=== PATIENT | female | born 1980 | race Caucasian/White ===

== ENCOUNTER 2018-06-29 22:00 | Inpatient (IN) | payer MEDICAID ==
[~2018-06-29] VITALS: Ht 165.1 cm; Wt 65.9 kg
--- NOTE | ~2018-06-29 | EC ---
PATIENT:SUZANNE CARVER DATE OF SERVICE: 06/29/18 SEX: F MEDICAL RECORD: [id number] DATE OF : [birth year] LOCATION:D.M3 D.120 AGE OF PATIENT: 37 ADMISSION DATE: 06/29/18 REFERRING PHYSICIAN: INTERPRETING PHYSICIAN: LARRY DUNNE MD ECHOCARDIOGRAM REPORT ECHO CHARGES 4 ECHO COMPLETE Date: 07/01/18 CLINICAL DIAGNOSIS: R/O VEGETATION ECHOCARDIOGRAPHIC MEASUREMENTS (adult normal given) AC root (d.<3.7cm) 2.9 cm LV Septum d (<1.2 cm> 0.7 cm Valve Excursion 2.0 cm LV Septum (systole) 1.2 cm Left Atria (s.<4.0cm> 2.0 cm LVPW d(<1.2cm) 1.0 cm RV (d.<2.3cm) 2.0 cm LVPW (sytole) 1.6 cm LV diastole(<5.6CM) 5.3 cm MV E-F(>70mm/sec) cm LV systole 3.4 cm LVOT Diameter 1.7 cm MV exc.(>10mm) cm Est.ejection fraction (50-75%) % DOPPLER: LVIT cm/sec A 140 cm/sec E 126 cm/sec LA cm/sec RVSP 29.0 mmHg LVOT 122 cm/sec AOP1/2T m/s Asc. Ao 128 cm/sec RVOT 86.0 cm/sec RA cm/sec PA 111 cm/sec AV Gradient Peak 6.6 mmHg AV Mean 3.3 mmHg AV Area 1.9 cm MV Gradient Peak 6.7 mmHg MV Mean 2.6 mmHg MV Area cm COMMENTS: Dye Colorist Formulator: [employer] [facility] Counseling Department Chair: 1 Dr. Dunne TAPE# PACS Pericardial Effusion N DATE OF SERVICE: 07/01/2018 FINDINGS: 1. Left ventricular chamber size is within normal limits. Left ventricular systolic function is normal. Overall ejection fraction estimated at 60%. 2. Left atrium, right atrium and right ventricular chamber sizes are within normal limits. 3. Valvular structures have normal structure and motion. 4. Doppler interrogation reveals trace mitral regurgitation, no other valvular insufficiency or stenosis. ECHOCARDIOGRAM REPORT [id number] SUZANNE CARVER 5. No evidence of vegetative endocarditis. 6. Pulmonary systolic pressure is normal, estimated at 29 mmHg. No evidence of pericardial effusion or left ventricular thrombus. TRANSINT:[id number] Voice Confirmation ID: [id number] DOCUMENT ID: [id number] LARRY DUNNE MD CC: [id number] DICTATION DATE: 07/02/18 1157 FINANCING ANALYST: 07/02/18 1216 ADM IN [facility] [address] [place] [address]
[2018-06-30] VITALS (7 sets, daily range): BP systolic 95–106; BP diastolic 32–60; Ht 165.1 cm; Wt 65.9 kg
[2018-06-30 06:58] LABS: HEMATOCRIT 32.8 % (36.0-48.0); HEMOGLOBIN 11.1 g/dL (12-16); MCH 29.8 pg (26.0-34.0); MCHC 33.8 g/dL (31.0-37.0); MCV 88.2 fL (80.0-100.0); MEAN PLATELET VOLUME 10.6 fL (7.4-10.4); PLATELET COUNT 224 10x3/uL (130-400); RBC 3.72 10x6/uL (4.00-5.40); RDW 13.6 % (11.5-14.5); WBC 7.7 10x3/uL (4.8-10.8)
[2018-06-30 07:09] LABS: CALCIUM 8.5 mg/dL (8.5-10.1); CARBON DIOXIDE 23.8 mmol/L (21.0-32.0); POTASSIUM - SERUM 3.8 mmol/L (3.5-5.1)
--- NOTE | 2018-06-30 07:38 | NUR ---
INITIAL ROUNDING ON THE PATIENT. SHE WAS ASSISTED UP TO THE BATHROOM, ASSESSMENT COMPLETED. DAUGHTER AT THE BED SIDE. IVF INFUSING TO THE RIGHT FA
[2018-06-30 08:40] LABS: EOSINOPHILS 3 % (0-7); LYMPHOCYTES 47 % (15-50); MONOCYTES 6 % (2-11); NEUTROPHILS 44 % (40-80); PLATELET ESTIMATE NORMAL
[2018-06-30 10:24] LABS: % SATURATION 19 % (15-55); IRON 51 ug/dl (35-150); TOTAL IRON BIND CAPACITY 264 ug/dl (260-445); UNSAT IRON BIND CAPACITY 213 ug/dl (150-375)
[2018-06-30 12:43] LABS: HCG URINE NEGATIVE (NEGATIVE)
[2018-06-30 13:18] LABS: APPEARANCE HAZY (CLEAR); BILIRUBIN NEGATIVE (NEGATIVE); COLOR YELLOW (YELLOW); GLUCOSE NEGATIVE (NEGATIVE); KETONE NEGATIVE (NEGATIVE); NITRITE NEGATIVE (NEGATIVE); PROTEIN NEGATIVE (NEGATIVE); SPECIFIC GRAVITY 1.015 (1.005-1.020); UROBILINOGEN NORMAL (NORMAL)
[2018-06-30 13:21] LABS: BACTERIA MODERATE /hpf (NONE SEEN); EPITHELIAL CELLS 0-5 /hpf (0-5); MUCUS <1+ /lpf (NONE SEEN); WHITE CELLS - URINE 0-5 /hpf (0-5)
[2018-06-30 13:28] LABS: UDS - AMPHET POSITIVE QUAL (NEGATIVE); UDS - BARB NEGATIVE QUAL (NEGATIVE); UDS - BENZO NEGATIVE QUAL (NEGATIVE); UDS - COCAINE NEGATIVE QUAL (NEGATIVE); UDS - OPIATE NEGATIVE QUAL (NEGATIVE); UDS - PCP NEGATIVE QUAL (NEGATIVE); UDS - THC NEGATIVE QUAL (NEGATIVE)
--- NOTE | 2018-06-30 17:58 | HP ---
PATIENT: SUZANNE CARVER MEDICAL RECORD: [id number] ACCOUNT: [id number] LOCATION:[address] : [birth year] ADMISSION DATE: 06/29/18 PCP: BACILIO COREY MD HISTORY AND PHYSICAL EXAMINATION HISTORY OF PRESENT ILLNESS: The patient is a 37-year-old white female with known MS previously followed by Dr. Loyd who presents with a flare times 2 days. She has been to the point where she is almost unable to walk. She is having some difficulties with swallowing and speech. She is very weak. She can identify no recent triggers. She does use methamphetamine on a regular basis. The last usage was yesterday. She inhales it, but no recent change in her recent abuse patterns. She denies any fever. She denies any weight loss, nausea, or vomiting. She has previously responded well to short courses of high-dose corticosteroids. She is going to be admitted for 48 hours of high dose Solu-Medrol. PAST MEDICAL HISTORY: Significant for known multiple sclerosis, depression, and chronic methamphetamine use. PAST SURGICAL HISTORY: None aware of. ALLERGIES OR INTOLERANCES: INCLUDE BENADRYL AND PENICILLIN. CURRENT HOME MEDICATIONS: Include butalbital p.r.n., methocarbamol p.r.n., Flonase, and vitamin D. FAMILY HISTORY: Noncontributory. SOCIAL HISTORY: Positive for methamphetamine use. REVIEW OF SYSTEMS: No fever, no chest pain, no shortness of breath, some nausea, vomiting, no abdominal pain. Periods have been regular, generalized weakness, decreased wellness manager, but everything seems symmetrical. No focal deficits. IMPRESSION: 1. MS with acute flare. 2. Chronic methamphetamine abuse. PLAN: Admit to check labs and test. If above okay, high-dose corticosteroids times 48 hours. See orders for rest of plan. TRANSINT:[id number] Voice Confirmation ID: [id number] DOCUMENT ID: [id number] MAKEDA ROMERO DO at 1758 CC: [id number] DICTATION DATE: 06/29/18 1619 SELF PROPELLED MINING MACHINE OPERATOR: 06/29/181944 ADM IN [place] [id number] [place] [address]
[2018-07-01] VITALS: BP 88/41
[2018-07-01 04:00] VITALS: BP 81/47
[2018-07-01 08:12] LABS: CALCIUM 7.8 mg/dL (8.5-10.1); CARBON DIOXIDE 22.1 mmol/L (21.0-32.0); CHLORIDE - SERUM 112 mmol/L (98-107); GLUCOSE 99 mg/dL (74-106); POTASSIUM - SERUM 3.4 mmol/L (3.5-5.1); SODIUM 143 mmol/L (136-145)
[2018-07-01 08:17] LABS: BASOPHILS 0.3 % (0-2); EOSINOPHILS 0.2 % (0-7); HEMATOCRIT 31.3 % (36.0-48.0); HEMOGLOBIN 10.4 g/dL (12-16); IMMATURE GRANULOCYTES 0.1 % (0-5); MCH 29.3 pg (26.0-34.0); MCHC 33.2 g/dL (31.0-37.0); MCV 88.2 fL (80.0-100.0); MEAN PLATELET VOLUME 10.7 fL (7.4-10.4); MONOCYTES 6.1 % (2-11); NEUTROPHILS 60.3 % (40-80); PLATELET COUNT 201 10x3/uL (130-400); RBC 3.55 10x6/uL (4.00-5.40); RDW 13.7 % (11.5-14.5)
[2018-07-01 08:22] LABS: CALC OSMOLALITY 284 mosm/kg (275-300); CREATININE - SERUM 0.5 mg/dL (0.6-1.3); UREA NITROGEN 12 mg/dL (7-18); eGFR NON AFRICAN AMERICAN > 90 mL/min (90-120)
[2018-07-01 08:24] LABS: WBC 10.5 10x3/uL (4.8-10.8)
--- NOTE | 2018-07-01 08:41 | NUR ---
PT RESTING IN BED, EYES CLOSED. RESPIRATIONS EVEN AND UNLABORED. AROUSES TO VOICE. NO C/O PAIN. NO S/S OF ACUTE DISTRESS NOTED. ALERT AND ORIENTED X3. UP WITH ASSIST. PT ACHS. IV TO RIGHT WRIST, NS INFUSING @ 100ML/HR. SITE PATENT WITHOUT REDNESS OR SWELLING. PT DENIES ANYTHING FURTHER AT THIS TIME. CALL LIGHT IN REACH. WILL CONTINUE TO MONITOR.
[2018-07-01 09:41] VITALS: BP 105/53
[2018-07-01 13:53] VITALS: BP 108/55
[2018-07-01 17:08] LABS: FOLATE (FOLIC ACID) - SERUM 5.1 ng/mL (>3.0)
--- NOTE | 2018-07-01 18:18 | NUR ---
PT RESTING IN BED, EYES OPEN. NO C/O PAIN. NO S/S OF ACUTE DISTRESS NOTED. FAMILY AT BEDSIDE. PT DENIES ANYTHING FURTHER. CALL LIGHT IN REACH. WILL CONTINUE TO MONITOR.
[2018-07-01 19:43] VITALS: BP 96/48
[2018-07-02 00:58] VITALS: BP 114/67
[2018-07-02 04:43] VITALS: BP 109/74
[2018-07-02 05:29] LABS: BASOPHILS 0 % (0-2); EOSINOPHILS 0 % (0-7); HEMATOCRIT 33.9 % (36.0-48.0); HEMOGLOBIN 11.4 g/dL (12-16); IMMATURE GRANULOCYTES 0.2 % (0-5); LYMPHOCYTES 8.3 % (15-50); MCH 29.5 pg (26.0-34.0); MCHC 33.6 g/dL (31.0-37.0); MCV 87.6 fL (80.0-100.0); MEAN PLATELET VOLUME 10.9 fL (7.4-10.4); MONOCYTES 3.7 % (2-11); NEUTROPHILS 87.8 % (40-80); PLATELET COUNT 195 10x3/uL (130-400); RBC 3.87 10x6/uL (4.00-5.40); RDW 13.7 % (11.5-14.5)
[2018-07-02 05:44] LABS: WBC 13.7 10x3/uL (4.8-10.8)
[2018-07-02 05:55] LABS: CALC OSMOLALITY 277 mosm/kg (275-300); CALCIUM 8.4 mg/dL (8.5-10.1); CARBON DIOXIDE 22.7 mmol/L (21.0-32.0); CHLORIDE - SERUM 108 mmol/L (98-107); CREATININE - SERUM 0.5 mg/dL (0.6-1.3); GLUCOSE 110 mg/dL (74-106); SODIUM 139 mmol/L (136-145); UREA NITROGEN 9 mg/dL (7-18); eGFR NON AFRICAN AMERICAN > 90 mL/min (90-120)
[2018-07-02 05:56] LABS: POTASSIUM - SERUM 4.2 mmol/L (3.5-5.1)
[2018-07-02 08:14] VITALS: BP 107/64
--- NOTE | 2018-07-02 09:11 | NUR ---
SOLU-MEDROL HUNG AT THIS TIME. PT A/O X4, RESP EVEN AND NONLABORD ON RA. P T REFUSED TO WEAR SCDS AT THIS TIME. PT DENIES ANY NEEDS, CALL LIGHT IN REACH, FAMILY AT BEDSIDE, NAD NOTED, WILL CONTINUE TO MONITOR.
--- NOTE | 2018-07-02 11:30 | NUR ---
BLOOD SUGAR OF 109, NO COVERAGE NEEDED PER S/S. PT DENIES ANY NEEDS AT THIS TIME. FAMILY AT BEDSIDE, CALL LIGHT IN REACH,NAD NOTED, WILL CONTINUE TO MONITOR.
[2018-07-02 13:17] VITALS: BP 115/70
--- NOTE | 2018-07-02 15:37 | NUR ---
PT RESTING COMFORTABLY IN BED, DENIES ANY NEEEDS AT THIS TIME. CALL LIGHT IN REACH, NAD NOTED, WILL CONTINUE TO MONITOR.
--- NOTE | 2018-07-02 15:55 | MORECARE ---
CASE MANAGEMENT DISCHARGE SUMMARY PATIENT: SUZANNE CARVER UNIT: [id number] ADM DATE: 06/29/18 AGE: 37 : [birth year] SEX: F ROOM/BED: D.1207 AUTHOR: COTY SULLIVAN PHYSICIAN: REFERRING PHYSICIAN: MAKEDA ROMERO DO DATE OF SERVICE: 07/02/18 Discharge Plan Patient Name: SUZANNE CARVER Facility: [facility]:[place] : 1980 Planned Disposition: Home Anticipated Discharge Date: Discharge Date: Expected LOS: Initial Reviewer: [email or web address] Initial Review Date: 07/02/2018 Generated: 07/02/18 4:55 pm Comments DCP- Discharge Planning Updated by [id number]: Keesha Barnard on 07/02/18 2:[address] Patient Name: SUZANNE CARVER Admission Status: Elective Accout number: [id number] Admission Date: 06-29-2018 : 1980 Admission Diagnosis: Attending: MAKEDA ROMERO Current LOS: 3 Anticipated DC Date: Planned Disposition: Home Primary Insurance: MEDICAID [place] Discharge Planning Comments: CM MET WITH PT AFTER VERBAL CONSENT TO DO INITIAL CM ASSESSMENT. CM EXPLAINED THE ROLE OF A CM AND SERVICES AVAILABLE LIKE HOME HEALTH, REHAB AND DME. PT STATED SHE WILL RETURN HOME WITH FAMILY. PT FEELS THIS IS A SAFE DC PLAN AND DENIES AND CM NEEDS AT THIS TIME. CM WILL CONTINUE TO FOLLOW. Suspender Maker: Keesha Barnard DCPIA - Discharge Planning Initial Assessment Updated by [id number]: Keesha Barnard on 07/02/18 3:48 pm * Is the patient Alert and Oriented? Yes * How many steps to enter\exit or inside your home? * PCP monae * [facility] * Preadmission Environment Home with Family * ADLs Independent * Verbal permission to speak to the caregivers and representatives has been obtained from the patient. Yes * Community resources currently utilized None * Additional services required to return to the preadmission environment? No * Can the patient safely return to the preadmission environment? Yes * Has this patient been hospitalized within the prior 30 days at any hospital? No Patient Name: SUZANNE CARVER Page [phone] at 1558 All edits/amendments must be made on the electronic document DICTATION DATE: 07/02/181554 LITHOGRAPHIC ETCHER: KOTA 07/02/181554 RPT#: [id number] DC DATE: STATUS: ADM IN [facility] [address] [place] [address] END OF REPORT
[2018-07-02 16:09] VITALS: BP 116/66
--- NOTE | 2018-07-02 16:44 | NUR ---
BLOOD SUGAR OF 157, PT REFUSED TO GET INSULIN PER S/S. DENIES ANY NEEDS AT THIS TIME. CALL LEANNE BATEMAN NOTED.
--- NOTE | 2018-07-02 19:09 | NUR ---
PATIENT RESTING IN BED AND DENIES NEEDS AT THIS TIME. BED IN LOWEST POSITION AND CALL LIGHT WITHIN REACH. ENCOURAGED THE PATIENT TO CALL IF SHE HAS NEEDS. WILL CONTINUE TO MONITOR.
[2018-07-02 20:08] VITALS: BP 127/63
[2018-07-03 00:20] VITALS: BP 117/61
[2018-07-03 04:58] VITALS: BP 99/40
--- NOTE | 2018-07-03 07:30 | NUR ---
RECEIVED POSITION ON RIGHT SIDE AND EYES CLOSED. RESPONDED TO NAME. DENIES ANY PAIN OR DISCOMFORT AND NO REQUESTS VOICED. IV PATENT AND INFUSING WELL. ASSESSMENT COMPLETED AND WILL CONTINUE POC.
[2018-07-03 07:37] LABS: BASOPHILS 0 % (0-2); EOSINOPHILS 0 % (0-7); HEMATOCRIT 30.4 % (36.0-48.0); HEMOGLOBIN 10.3 g/dL (12-16); IMMATURE GRANULOCYTES 0.2 % (0-5); LYMPHOCYTES 11.7 % (15-50); MCH 29.3 pg (26.0-34.0); MCHC 33.9 g/dL (31.0-37.0); MCV 86.6 fL (80.0-100.0); MONOCYTES 7.3 % (2-11); NEUTROPHILS 80.8 % (40-80); PLATELET COUNT 185 10x3/uL (130-400); RBC 3.51 10x6/uL (4.00-5.40); RDW 14.1 % (11.5-14.5); WBC 13.3 10x3/uL (4.8-10.8)
[2018-07-03 08:00] LABS: CALC OSMOLALITY 281 mosm/kg (275-300); CALCIUM 7.8 mg/dL (8.5-10.1); CARBON DIOXIDE 24.5 mmol/L (21.0-32.0); CHLORIDE - SERUM 109 mmol/L (98-107); CREATININE - SERUM 0.5 mg/dL (0.6-1.3); GLUCOSE 114 mg/dL (74-106); POTASSIUM - SERUM 3.7 mmol/L (3.5-5.1); SODIUM 141 mmol/L (136-145); eGFR NON AFRICAN AMERICAN > 90 mL/min (90-120)
[2018-07-03 08:03] VITALS: BP 97/48
[2018-07-03 08:03] LABS: UREA NITROGEN 13 mg/dL (7-18)
[2018-07-03 17:23] VITALS: BP 106/60
--- NOTE | 2018-07-03 19:26 | NUR ---
GREETED PATIENT AND INTRODUCED MYSELF HER NURSE. PATIENT STATES THAT SHE IS VERY ANXIOUS THIS AFTERNOON. FAMILY MEMBER AT BEDSIDE. PATIENT STATES NO EVIDENCE OF PAIN. CALL LIGHT IN REACH.
[2018-07-03 19:31] VITALS: BP 137/70
[2018-07-04 00:05] VITALS: BP 117/76
--- NOTE | 2018-07-04 00:41 | NUR ---
PATIENT RESTING QUIETLY WITH EYES CLOSED. RESPIRATIONS EVEN. NO S/S OF DISTRESS. FAMILY MEMBER ASLEEP IN CHAIR NEXT TO BED. CALL LIGHT IN REACH.
[2018-07-04 04:34] VITALS: BP 106/55
[2018-07-04 07:17] LABS: BASOPHILS 0 % (0-2); EOSINOPHILS 0 % (0-7); HEMATOCRIT 31.4 % (36.0-48.0); HEMOGLOBIN 10.6 g/dL (12-16); IMMATURE GRANULOCYTES 0.2 % (0-5); LYMPHOCYTES 17.2 % (15-50); MCH 29.2 pg (26.0-34.0); MCHC 33.8 g/dL (31.0-37.0); MCV 86.5 fL (80.0-100.0); MONOCYTES 6.3 % (2-11); NEUTROPHILS 76.3 % (40-80); PLATELET COUNT 187 10x3/uL (130-400); RBC 3.63 10x6/uL (4.00-5.40); RDW 14.1 % (11.5-14.5); WBC 12.4 10x3/uL (4.8-10.8)
[2018-07-04 07:42] LABS: CALC OSMOLALITY 278 mosm/kg (275-300); CHLORIDE - SERUM 108 mmol/L (98-107); CREATININE - SERUM 0.6 mg/dL (0.6-1.3); GLUCOSE 94 mg/dL (74-106); POTASSIUM - SERUM 3.9 mmol/L (3.5-5.1); SODIUM 140 mmol/L (136-145); UREA NITROGEN 13 mg/dL (7-18); eGFR NON AFRICAN AMERICAN > 90 mL/min (90-120)
[2018-07-04 08:27] VITALS: BP 112/60
--- NOTE | 2018-07-04 11:04 | NUR ---
BLOOD SUGAR OF 135, NO COVERAGE PER S/S. NEW BAG OF NS HUNG AT THIS TIME. BUSINESS LAW INSTRUCTOR AT BEDSIDE DOING VITALS. PT DENIES ANY NEEDS AT THIS TIME, CALL LIGHT IN REACH, FAMILY AT BEDSIDE, NAD NOTED, WILL CONTINUE TO MONITOR.
[2018-07-04 12:31] VITALS: BP 120/69
--- NOTE | 2018-07-04 16:33 | NUR ---
COVERED PT'S IV SO SHE COULD GET IN THE SHOWER. PT WILL CALL WHEN FINISHED WITH SHOWER.
--- NOTE | 2018-07-04 16:58 | NUR ---
BLOOD SUGAR OF 138, NO COVERAGE NEEDED PER S/S. PT JUST GOT OUT OF THE SHOWER, DENIES ANY NEEDS AT THIS TIME. CALL LIGHT IN REACH, FAMILY AT BEDSIDE, NAD NOTED.
[2018-07-04 17:03] VITALS: BP 108/50
--- NOTE | 2018-07-04 19:31 | NUR ---
PATIENT RESTING IN BED AND DENIES NEEDS AT THIS TIME. BED IN LOWEST POSITION AND CALL LIGHT WITHIN REACH. ENCOURAGED THE PATIENT TO CALL IF HE HAS NEEDS. WILL CONTINUE TO MONITOR.
[2018-07-04 20:18] VITALS: BP 124/87
[2018-07-05 00:16] VITALS: BP 122/46
[2018-07-05 04:14] VITALS: BP 117/44
[2018-07-05 07:01] LABS: HEMATOCRIT 30.5 % (36.0-48.0); HEMOGLOBIN 10.8 g/dL (12-16); LYMPHOCYTES 15.9 % (15-50); MCH 31.2 pg (26.0-34.0); MCHC 35.4 g/dL (31.0-37.0); MCV 88.2 fL (80.0-100.0); MEAN PLATELET VOLUME 10.6 fL (7.4-10.4); NEUTROPHILS 78.4 % (40-80); PLATELET COUNT 159 10x3/uL (130-400); RBC 3.46 10x6/uL (4.00-5.40); RDW 14.1 % (11.5-14.5); WBC 11.2 10x3/uL (4.8-10.8)
[2018-07-05 07:03] LABS: CALC OSMOLALITY 280 mosm/kg (275-300); CALCIUM 7.5 mg/dL (8.5-10.1); CARBON DIOXIDE 23.2 mmol/L (21.0-32.0); CHLORIDE - SERUM 107 mmol/L (98-107); CREATININE - SERUM 0.6 mg/dL (0.6-1.3); GLUCOSE 111 mg/dL (74-106); POTASSIUM - SERUM 3.8 mmol/L (3.5-5.1); SODIUM 140 mmol/L (136-145); UREA NITROGEN 14 mg/dL (7-18); eGFR NON AFRICAN AMERICAN > 90 mL/min (90-120)
--- NOTE | 2018-07-05 07:35 | NUR ---
AWAKE AND ALERT. ORIENTED X3. NO C/O AT THIS TIME. LUNGS ARE CLEAR BILATERALLY, NO COUGH NOTED. SKIN IS INTACT WITHOUT REDNESS. SL TO RIGHT WRIST IS PATENT WITHOUT REDNESS AT INSERTION SITE. FAMILY AT BEDSIDE. DENIES NEEDS.
[2018-07-05 07:56] VITALS: BP 116/54
--- NOTE | 2018-07-05 08:20 | MORECARE ---
CASE MANAGEMENT DISCHARGE SUMMARY PATIENT: SUZANNE CARVER UNIT: [id number] ADM DATE: 06/29/18 AGE: 37 : [birth year] SEX: F ROOM/BED: D.1207 AUTHOR: NATE,DOC PHYSICIAN: REFERRING PHYSICIAN: MAKEDA ROMERO DO DATE OF SERVICE: 07/05/18 Discharge Plan Patient Name: SUZANNE CARVER Facility: [facility]:[place] : 1980 Planned Disposition: Home Anticipated Discharge Date: Discharge Date: Expected LOS: Initial Reviewer: [email or web address] Initial Review Date: 07/02/2018 Generated: 07/05/18 9:20 am Comments DCP- Discharge Planning Updated by [email or web address]: Keesha Barnard on 07/02/18 2:[address] Patient Name: SUZANNE CARVER Admission Status: Elective Accout number: [id number] Admission Date: 06-29-2018 : 1980 Admission Diagnosis: Attending: MAKEDA ROMERO Current LOS: 3 Anticipated DC Date: Planned Disposition: Home Primary Insurance: MEDICAID [place] Discharge Planning Comments: CM MET WITH PT AFTER VERBAL CONSENT TO DO INITIAL CM ASSESSMENT. CM EXPLAINED THE ROLE OF A CM AND SERVICES AVAILABLE LIKE HOME HEALTH, REHAB AND DME. PT STATED SHE WILL RETURN HOME WITH FAMILY. PT FEELS THIS IS A SAFE DC PLAN AND DENIES AND CM NEEDS AT THIS TIME. CM WILL CONTINUE TO FOLLOW. Belt Machine Operator: Keesha Barnard DCPIA - Discharge Planning Initial Assessment Updated by [email or web address]: Keesha Barnard on 07/02/18 3:48 pm * Is the patient Alert and Oriented? Yes * How many steps to enter\exit or inside your home? * PCP monae * [facility] * Preadmission Environment Home with Family * ADLs Independent * Verbal permission to speak to the caregivers and representatives has been obtained from the patient. Yes * Community resources currently utilized None * Additional services required to return to the preadmission environment? No * Can the patient safely return to the preadmission environment? Yes * Has this patient been hospitalized within the prior 30 days at any hospital? No Last DP export: 07/02/18 2:55 p Patient Name: SUZANNE CARVER Page [phone] at 0820 All edits/amendments must be made on the electronic document DICTATION DATE: 07/05/18819 WALLPAPERER: KOTA 07/05/18819 RPT#: [id number] DC DATE: STATUS: ADM IN [facility] [address] [place] [address] END OF REPORT
--- NOTE | 2018-07-05 08:35 | NUR ---
ATE ALMOST ALL OF BREAKFAST. DENIES NEEDS.
[2018-07-05 11:06] VITALS: BP 111/74
--- NOTE | 2018-07-05 11:30 | NUR ---
FSBS 154. REFUSED COVERAGE AT THIS TIME.
--- NOTE | 2018-07-05 11:53 | MORECARE ---
CASE MANAGEMENT DISCHARGE SUMMARY PATIENT: SUZANNE CARVER UNIT: [id number] ADM DATE: 06/29/18 AGE: 37 : [birth year] SEX: F ROOM/BED: D.1207 AUTHOR: NATE,DOC PHYSICIAN: REFERRING PHYSICIAN: MAKEDA ROMERO DO DATE OF SERVICE: 07/05/18 Discharge Plan Patient Name: SUZANNE CARVER Facility: [facility]:[place] : 1980 Planned Disposition: Home Anticipated Discharge Date: Discharge Date: Expected LOS: Initial Reviewer: [email or web address] Initial Review Date: 07/02/2018 Generated: 07/05/18 12:53 pm Comments DCP- Discharge Planning Updated by [email or web address]: Keesha Barnard on 07/02/18 2:[address] Patient Name: SUZANNE CARVER Admission Status: Elective Accout number: [id number] Admission Date: 06-29-2018 : 1980 Admission Diagnosis: Attending: MAKEDA ROMERO Current LOS: 3 Anticipated DC Date: Planned Disposition: Home Primary Insurance: MEDICAID [place] Discharge Planning Comments: CM MET WITH PT AFTER VERBAL CONSENT TO DO INITIAL CM ASSESSMENT. CM EXPLAINED THE ROLE OF A CM AND SERVICES AVAILABLE LIKE HOME HEALTH, REHAB AND DME. PT STATED SHE WILL RETURN HOME WITH FAMILY. PT FEELS THIS IS A SAFE DC PLAN AND DENIES AND CM NEEDS AT THIS TIME. CM WILL CONTINUE TO FOLLOW. Schedule Manager: Keesha Barnard DCPIA - Discharge Planning Initial Assessment Updated by [email or web address]: Keesha Barnard on 07/02/18 3:48 pm * Is the patient Alert and Oriented? Yes * How many steps to enter\exit or inside your home? * PCP monae * [facility] * Preadmission Environment Home with Family * ADLs Independent * Verbal permission to speak to the caregivers and representatives has been obtained from the patient. Yes * Community resources currently utilized None * Additional services required to return to the preadmission environment? No * Can the patient safely return to the preadmission environment? Yes * Has this patient been hospitalized within the prior 30 days at any hospital? No Last DP export: 07/05/18 7:20 a Patient Name: SUZANNE CARVER Page [phone] at 1153 All edits/amendments must be made on the electronic document DICTATION DATE: 07/05/181151 PUBLIC RELATIONS REPRESENTATIVE: KOTA 07/05/181151 RPT#: [id number] DC DATE: STATUS: ADM IN [facility] [address] [place] [address] END OF REPORT
--- NOTE | 2018-07-05 11:53 | NUR ---
DISCHARGED TO HOME AMBULATORY WITH FAMILY. DISCHARGE INSTRUCTIONS GIVEN BOTH VERBALLY AND WRITTEN. ALL QUESTIONS ANSWERED. PATIENT VERBALIZED UNDERSTANDING OF SAME. IV TO RIGHT WRIST D/C WITH CATHETER INTACT. NO NEW PRESCRIPTIONS NEEDED. ALL BELONGINGS WITH PATIENT.
== END 2018-07-05 11:56 | disposition home or self-care (01) | DRG 59 ==
LOC: D.M3 22:00
PROVIDERS: Internal Medicine Nephrology; ADMIT Family Medicine; ATTEND Family Medicine
DX: G35 Multiple sclerosis (principal); N17.9 Acute kidney failure, unspecified; F15.10 Other stimulant abuse, uncomplicated; F32.9 Major depressive disorder, single episode, unspecified; D64.9 Anemia, unspecified; E87.6 Hypokalemia

== ENCOUNTER → 2018-06-29 | Emergency (ER) | payer MEDICAID | END | disposition home or self-care (01) | LOC: D.ER 21:52 | DX: G35 Multiple sclerosis (principal) ==